=== PATIENT | male | born 1950 | race Caucasian/White ===

== ENCOUNTER 2019-04-16 23:16 | Inpatient (IN) | payer OTHER ==
[~2019-04-16] VITALS: Ht 175.3 cm; Wt 59.0 kg
--- NOTE | ~2019-04-16 | EEG ---
[address] [address] EEG STUDY REPORT Name: LIAT WRIGHT Room: [address] IN M.R.#: [id number] Admission: 04/17/19 Attend Phys: Tiny Vasquez Discharge: Date of : 52 Report #: [id number] THIS REPORT FOR: //name// CC: LUCIANO physician/PCP Tiny Morrow DATE OF SERVICE: 04/19/2019 This patient is being evaluated for hallucination. EEG was done by placing the electrode by standard 10-20 system of electrode placement. Both referential and sequential montages were used for recording. Background activity in this patient's EEG is about 9 Hz and 30 microvolt. The patient went to sleep and that is associated with bilateral slowing and vertex sharp waves. Photic stimulation was unremarkable. Throughout the record, no active epileptiform activity was noticed. IMPRESSION: This patient's EEG is intermixed with theta range slowing on both sides. That is a nonspecific abnormality, which can occur with dementia, encephalopathy, effect of psychotropic medication, etc. Clinical correlation is recommended. By: [id number] Palomo MD /nt
--- NOTE | ~2019-04-16 | CON ---
[address] [address] CONSULTATION Name: LIAT WRIGHT Room: [address] IN M.R.#: [id number] Admission: 04/17/19 Attend Phys: Tiny Vasquez Discharge: Date of : 52 Report #: [id number] THIS REPORT FOR: //name// CC: LUCIANO physician/PCP Tiny Morrow DATE OF SERVICE: 04/18/2019 HISTORY OF PRESENT ILLNESS: This is a 68-year-old male patient, who was seen by me for any neurological etiology for the patient's symptoms. The patient gives a history that his memory has been falling for some time. Recently, he underwent a lot of stress. Stress was because of . He is also getting very poor sleep. He is moving from [place] to [place]. had a stroke, her voice is also poor. He was actively hallucinating. He has hallucinated in the past also and his cognition is decreasing. REVIEW OF SYSTEMS: Positive for decrease in cognition. His CT scan demonstrates mild atrophy. His 14-point review of systems was carried out and this was his 14-poind review of systems. PAST MEDICAL HISTORY: Negative for any stroke. FAMILY HISTORY: Positive for hypertension. SOCIAL HISTORY: He says he does not drink alcohol except occasionally and does not use any street drugs. His drug screen was positive for benzo, but he took Valium, which was prescribed to the patient's . PHYSICAL EXAMINATION: NEUROLOGIC: The patient's examination indicates he is alert, his speech looks okay, but his memory and fund of knowledge is poor. His cranial nerve examination looks mostly unremarkable. Neuromuscular examination as checked for strength, sensation, reflexes and tone was symmetrical. There is no meningeal sign. There is no carotid bruit. I could not look at the fundus. CARDIAC: Examination appears unremarkable. RESPIRATORY: No respiratory difficulty was noticed. VITAL SIGNS: His blood pressure is 171/81, respirations are 16, pulse is 75 and temperature is 98.7. LABORATORY DATA: His blood workup otherwise looks unremarkable. White count is normal. CT scan showed some atrophy. IMPRESSION: It would appear this patient probably has some cognitive decline. His hallucinations are most likely psychiatric in origin. Since this is relatively a new onset, I will get an MRI and an EEG done. If that is okay, then main management is going to be psychiatric and he [place] [address] CONSULTATION Name: LIAT WRIGHT Room: [address] IN [facility]#: [id number] Admission: 04/17/19 Attend Phys: Tiny Vasquez Discharge: Date of : 52 Report #: [id number] an outpatient for dementia. Thank you very much for this referral. By: [id number] Palomo MD /nt
[2019-04-16 23:25] VITALS: BP 168/80
[2019-04-16 23:47] LABS: URINE BLOOD 1+ (Negative); URINE CLARITY CLEAR; URINE COLOR DARK YELLOW; URINE GLUCOSE-RANDOM NEGATIVE (Negative); URINE KETONES 1+ (Negative); URINE LEUKOCYTES-REFLEX NEGATIVE (Negative); URINE NITRITE-REFLEX NEGATIVE (Negative); URINE PROTEIN TRACE (Negative); URINE SPECIFIC GRAVITY >= 1.030 (1.005-1.030)
[2019-04-16 23:54] LABS: ICTOTEST (BILI CONFIRMATORY) Positive (Negative); URINE BILIRUBIN 2+ (Negative)
[2019-04-16 23:56] LABS: AMP/METHAMP Negative (Negative); BARBITURATES Negative (Negative); BENZODIAZEPINES POSITIVE (Negative); COCAINE Negative (Negative); METHADONE Negative (Negative); OPIATES Negative (Negative); PCP Negative (Negative); THC Negative (Negative)
[2019-04-16 23:59] LABS: BACTERIA-REFLEX >30 Many /HPF (None Seen); FINE GRANULAR CASTS 0-3 Few /LPF (None Seen); HYALINE CASTS 0-3 Few /LPF (None Seen); MUCUS >6 Heavy strn/LPF (None Seen); SQUAMOUS 0-3 Few /LPF (0-3); URINE RBC 3-10 Few /HPF (0-2); URINE WBC-REFLEX None Seen /HPF (0-5)
[2019-04-17 00:16] LABS: ABSOLUTE LYMPHOCYTES 1.4 thou/uL (0.8-5.3); ABSOLUTE MONOCYTES 0.6 thou/uL (0.0-1.2); ABSOLUTE NEUTROPHILS 5.1 thou/uL (1.6-8.1); BASOPHILS 0.4 %; EOSINOPHILS 0.5 %; HEMATOCRIT 42.7 % (42.0-52.0); HEMOGLOBIN 14.6 gm/dL (14.0-18.0); LYMPHOCYTES 19.3 %; MCH 30.6 pg (26.0-34.0); MCHC 34.1 g/dL (28.0-37.0); MCV 89.7 fL (80.0-100.0); MONOCYTES 7.8 %; MPV 8.3 fl. (7.2-11.1); NUCLEATED RBCS 0 /100WBC; PLATELET COUNT* 197 thou/uL (150-400); RBC 4.76 mil/uL (4.50-6.00); RDW-CV 13.7 % (10.5-14.5); WBC 7.1 thou/uL (4.0-11.0)
[2019-04-17 00:22] LABS: CALCIUM 8.9 mg/dL (8.5-10.1); CREATININE 1.2 mg/dL (0.6-1.3); POTASSIUM 3.7 mmol/L (3.5-5.1)
[2019-04-17 00:24] LABS: INR 1.1; PROTIME 11.2 Seconds (9.20-11.50)
[2019-04-17 00:33] LABS: CRYSTALS None Seen /LPF (None Seen)
[2019-04-17 00:33] LABS: ALBUMIN 4.1 g/dL (3.4-5.0); TOTAL BILIRUBIN 0.8 mg/dL (<0.1-1.0); TOTAL PROTEIN 7.4 g/dL (6.4-8.2)
[2019-04-17 01:40] LABS: INFLUENZA A ANTIGEN Negative (Negative); INFLUENZA B ANTIGEN Negative (Negative)
[2019-04-17 05:45] VITALS: BP 138/62
[2019-04-17 07:52] VITALS: BP 138/62
--- NOTE | 2019-04-17 10:17 | EKG ---
[place] [address] ELECTROCARDIOGRAM REPORT Name: KYLELIAT Room: [address] ADM IN .R.#: [id number] Admission: 04/17/19 Attend Phys: Tiny Vasquez Discharge: Date of : 52 Report #: [id number] THIS REPORT FOR: //name// [facility] ED Test Date: 2019-04-16 Test Time: 23:33:57 Pat Name: LIAT WRIGHT Department: Room: [facility] Gender: M Certified Ophthalmic Surgical Assistant: BLANCA : 1950 Requested By: Zandra Potter Order Number: [id number] MD: Landon Pennington Measurements Intervals [place] Rate: 78 P: 55 HI: 182 QRS: 58 QRSD: 83 T: 50 QT: 381 QTc: 434 Interpretive Statements Sinus rhythm RSR' in V1 or V2, right VCD or RVH No previous ECG available for comparison Electronically Signed On 04-17-2019 10:16:13 [employer] by Landon Pennington [email or web address] <ELECTRONICALLY SIGNED> By: Landon Pennington MD, [facility] 04/17/19 [id number] Landon Pennington MD, [facility] /EPI
[2019-04-17 17:04] VITALS: BP 145/74
[2019-04-17 21:30] VITALS: BP 126/80
[2019-04-18 03:52] LABS: HEMATOCRIT 39.3 % (42.0-52.0); HEMOGLOBIN 13.5 gm/dL (14.0-18.0); MCH 30.8 pg (26.0-34.0); MCHC 34.4 g/dL (28.0-37.0); MCV 89.4 fL (80.0-100.0); MPV 8.5 fl. (7.2-11.1); RBC 4.39 mil/uL (4.50-6.00); RDW-CV 13.8 % (10.5-14.5)
[2019-04-18 03:59] LABS: CALCIUM 8.1 mg/dL (8.5-10.1); POTASSIUM 3.8 mmol/L (3.5-5.1)
[2019-04-18 08:29] VITALS: BP 141/68
[2019-04-18 17:01] VITALS: BP 171/81
[2019-04-18 22:20] VITALS: BP 139/70
[2019-04-19 08:10] VITALS: BP 144/76
[2019-04-19 16:39] VITALS: BP 106/74
[2019-04-19 21:00] VITALS: BP 143/79
[2019-04-20 11:05] VITALS: BP 143/79
[2019-04-20] MEDS ORDERED: AUGMENTIN 500-1 EACH PO (11:11)
== END 2019-04-20 11:40 | disposition home or self-care (01) | DRG 885 ==
LOC: M.ERS 23:16 → M.ORTHSURG 04-17 02:59 → M.TBA-ER 04-17 02:59 → M.ORTHSURG 04-17 08:19
PROVIDERS: Emergency Medicine; Family Medicine; ADMIT Family Medicine
DX: F23 Brief psychotic disorder (principal); Z68.1 Body mass index [BMI] 19.9 or less, adult; R82.71 Bacteriuria; R63.6 Underweight; R41.0 Disorientation, unspecified; F12.90 Cannabis use, unspecified, uncomplicated; Z82.49 Family history of ischemic heart disease and other diseases of the circulatory system; Z79.899 Other long term (current) drug therapy